=== PATIENT | male | born 1960 | race Caucasian/White ===

== ENCOUNTER 2018-11-26 14:23 | Emergency (ER) | payer OTHER ==
[~2018-11-26] VITALS: Ht 182.9 cm; Wt 83.9 kg
[2018-11-26 14:45] LABS: ABSOLUTE NEUTROPHILS 4.9 thou/uL (1.4-8.2); BASOPHILS 0.3 % (0.0-2.0); EOSINOPHILS 1.2 % (0.0-3.0); HEMATOCRIT 41.6 % (42.0-52.0); HEMOGLOBIN 14.4 gm/dL (14.0-18.0); LYMPHOCYTES 31.1 % (24.0-44.0); MCH 31.1 pg (26.0-34.0); MCHC 34.6 g/dL (28.0-37.0); MONOCYTES 4.8 % (1.0-8.0); PLATELET COUNT 257 thou/uL (150-400); POLYS 62.6 % (36.0-66.0); RBC 4.62 mil/uL (4.50-6.00); RDW 13.3 % (10.5-14.5); WBC 7.8 thou/uL (4.0-11.0)
[2018-11-26] MEDS ORDERED: LIPITOR 20 MG T20 M1 PO (14:48)
[2018-11-26] MEDS ORDERED: SINGULAIR 10 MG10 M1 PO (14:48)
[2018-11-26] MEDS ORDERED: ZYRTEC10 M5 PO (14:48)
[2018-11-26] MEDS ORDERED: VITAMIN D3400 UNIT PO (14:49)
[2018-11-26] MEDS ORDERED: FISH OIL 1,001000 M2 PO (14:49)
[2018-11-26 14:55] LABS: ANION GAP 6 mmol/L (7-16); BUN 15 mg/dL (7-18); CALCIUM 9.6 mg/dL (8.5-10.1); CHLORIDE 104 mmol/L (98-107); CO2 29 mmol/L (21-32); CREATININE 1.2 mg/dL (0.7-1.3); GLUCOSE 92 mg/dL (74-106); POTASSIUM 4.1 mmol/L (3.5-5.1); SODIUM 139 mmol/L (136-145)
[2018-11-26 15:05] LABS: ALBUMIN 4.2 g/dL (3.4-5.0); SGOT 26 U/L (15-37); SGPT 49 U/L (30-65); TOTAL BILIRUBIN 0.6 mg/dL (<0.1-1.0); TROPONIN-I <0.06 ng/mL (<0.06)
[2018-11-26 15:54] VITALS: BP 131/49
--- NOTE | 2018-11-26 22:11 | EKG ---
[place] [address] [address] [place] [address] ELECTROCARDIOGRAM REPORT Name: YUSUF BOWER Room #: [facility]P [id number] ������������������ Admission: 11/26/18 ������������������ Attend Phys: Discharge: 11/26/18 ������������������ Date of : 60 Report #: [id number] ����������������������������������������������������������������� [id number] THIS REPORT FOR: //name// [facility] ED Test Date: 2018-11-26 Test Time: 14:33:24 Pat Name: YUSUF BOWER Department: Room: Gender: M [employer]: 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
== END 2018-11-26 15:54 | disposition left against medical advice (07) ==
LOC: ER 14:23
PROVIDERS: Emergency Medicine
DX: M79.602 Pain in left arm (principal); R06.00 Dyspnea, unspecified; E78.00 Pure hypercholesterolemia, unspecified